=== PATIENT | male | born 1975 | race Hispanic/Latino ===

== ENCOUNTER 2021-01-06 23:27 | Emergency (ER) | payer BC ==
[~2021-01-06] VITALS: Ht 180.3 cm; Wt 123.8 kg
[2021-01-06] MEDS ORDERED: PROBIOTIC & AC1 EACH PO (23:59)
[2021-01-06] MEDS ORDERED: IBUPROFEN IB200 MG PO (23:59)
[2021-01-06] MEDS ORDERED: DOXYCYCLINE HY100 MG PO (23:59)
[2021-01-06] MEDS ORDERED: CLEOCIN HCL300 MG PO (23:59)
[2021-01-07] MEDS ORDERED: Vancomycin IV 1.5 GM in SODIUM CHLORIDE 0.9% 250ML 250 ML IV ONE ×2
[2021-01-07] MEDS ORDERED: CLINDAMYCIN PHOS 900MG/ 50ML 50 ML IV ONE
[2021-01-07] MEDS ORDERED: HYDROCODONE/APAP 5MG-325MG TAB PO ONE (00:15)
[2021-01-07] MEDS ORDERED: ONDANSETRON HCL INJ 2MG/ML 2ML 2 MG/ML VIAL IV ONE (00:15)
[2021-01-07] MEDS ORDERED: IBUPROFEN 200 MG TAB PO ONE (00:15)
[2021-01-07] MEDS ORDERED: CLONIDINE HCL 0.2 MG TAB PO ONE (00:15)
[2021-01-07] MEDS ORDERED: CLONIDINE HCL 0.1 MG TAB ONE (00:28)
[2021-01-07] MEDS ORDERED: ONDANSETRON HCL INJ 2MG/ML 2ML 2 MG/ML VIAL ONE (00:28)
[2021-01-07] MEDS ORDERED: IBUPROFEN 400 MG TAB ONE (00:29)
[2021-01-07] MEDS ORDERED: CLINDAMYCIN PHOS 300MG/2ML VIAL ONE (00:29)
[2021-01-07] MEDS ORDERED: Vancomycin IV 1 GM VIAL ONE (00:30)
[2021-01-07] MEDS ORDERED: HYDROCODONE/APAP 5MG-325MG TAB ONE (00:30)
[2021-01-07] MEDS ORDERED: CLINDAMYCIN 600MG / 50ML 50 ML IV ONE (00:30)
[2021-01-07] MEDS ORDERED: SODIUM CHLORIDE 0.9% 250ML 250 ML ONE (00:31)
[2021-01-07 03:33] VITALS: BP 123/69
== END 2021-01-07 03:33 | disposition home or self-care (01) ==
LOC: FSED 23:45
DX: L03.116 Cellulitis of left lower limb (principal); B35.3 Tinea pedis
CPT/HCPCS: 80053; 85025; 96374; 99283; J2405; J3370; J7050